=== PATIENT | male | born 1945 | race Caucasian/White ===

== ENCOUNTER 2025-03-01 08:11 | Day surgery (SDC) | payer MEDICARE, OTHER, SELFPAY ==
--- NOTE | 2025-03-01 | PATH_ITS ---
[facility] Accession Number: [id number] No. of containers..02 Tissue . 01 Material submitted: . PART A: colon - ASCENDING POLYP X 2 PART B: sigmoid colon - SIGMOID POLYP X 2 . 01 Diagnosis: A. ASCENDING COLON POLYPS: Sessile serrated adenoma. Tubular adenoma. . B. SIGMOID COLON POLYPS: Tubular adenomas. MRV 03/05/2025 1237 Local . 01 Electronically signed: . Molly Akhtar MD, Pathologist NPI- [id number] . 01 Gross description: . Part A: ASCENDING POLYP X 2: Received in formalin are multiple fragment(s) of green, soft tissue measuring 0.1 x 0.1 x 0.1 cm to 0.6 x 0.4 x 0.3 cm submitted entirely in 1 cassette(s) Part B: SIGMOID POLYP X 2: Received in formalin are multiple fragment(s) of green, soft tissue measuring 0.3 x 0.3 x 0.2 cm to 1.0 x 0.4 x 0.2 cm submitted entirely in 1 cassette(s) /MANUELA 03/02/2025 0126 Local . 01 Pathologist provided ICD-10: D12.2, D12.5 . 01 CPT . 022071, 015852 Specimen Comment: A courtesy copy of this report has been sent to [facility] Performed at: [address] [address], [place], [place] [id number] MD Luis Antonio Bergman MD Phone: [phone]
--- NOTE | 2025-03-01 08:49 | PM.HP.IH.1 ---
History of Present Illness History of Present Illness Date Patient Seen: 03/01/25 Time Patient Seen: 08:49 Chief complaint: SDC Narrative: 79-year-old white male with a history of colon polyps 3 years ago recommended for surveillance at this time. No changes in health. Meds Home Medications and Allergies Home Medications Medication Instructions Recorded Confirmed Type sodium,potassium,mag sulfates 17.5 See Rx Instructions PO .COMPLEX 02/07/25 Rx gram-3.13 gram-1.6 gram oral soln #354 mL (Suprep Bowel Prep Kit) Review of Systems Review of Systems ROS: Yes All systems reviewed with the patient and are negative except as otherwise documented Exam Narrative Exam Narrative: Gen: NAD, sitting comfortably in bed, appears well HEENT: Sclera are anicteric, head is normocephalic and atraumatic, trachea is midline. CV: RRR, no JVD Resp: clear to auscultation bilaterally, equal chest wall movement bilaterally Abd: soft, nontender, normoactive bowel sounds Ext: no edema, full range of motion Neuro: Cranial nerves II-XII grossly intact, no focal deficits Skin: No erythema or ecchymosis Assessment & Plan Assessment and plan (1) Personal history of colonic polyps: Status: Acute Assessment & Plan narrative: Patient presents for colonoscopy Risks, benefits, alternatives to colonoscopy explained, including but not limited to bowel perforation or other serious complication requiring surgery at less than 1 in 5000 colonoscopies, abdominal pain, cramping or bleeding and less than 1% of colonoscopies, and the chances that we find a diagnosis that would require further intervention of about 2%. Patient agrees to proceed. Time-Based Coding :: [TOTAL MINUTES] spent with patient and on the chart (including review of chart, obtaining history, exam, reviewing outside data, placing orders, documenting exam and treatment plan, and counseling patient) on [DATE]. [employer] Document charge(s): No
[2025-03-01] MEDS: LACTATED RINGERS 1,000 ML 125 ML IV (09:00)
[2025-03-01 09:05] VITALS: BP 210/100; PULSE 68; RESP 16; TEMP 36.6; O2SAT 97
--- NOTE | 2025-03-01 10:07 | PM.OP.COLON ---
Operative Date/Time/Diagnoses Date of procedure: 03/01/25 Time of procedure: 10:07 Pre-op diagnosis: Colon screening Post-op diagnosis: same (Multiple polyps, diverticulosis) Procedure & Clinicians Study performed: Colonoscopy with cold snare polypectomy Same procedure as scheduled: Yes Indications: Colon screening Surgeon: Devendra Galarza Procedure Notes SCOAP/Timeout: Performed Procedure in detail: Time-out was performed. Mac was induced. Patient was placed in left lateral decubitus position. The perineum was inspected without any gross abnormality. Lubricated pediatric colonoscope was inserted and advanced to the cecum. The terminal ileum was intubated. The colonoscope was withdrawn slowly inspecting the circumference of the colon. Patient had 2 benign-appearing polyps in the ascending colon and 2 benign-appearing polyps in the sigmoid colon. All polyps were removed with cold snare polypectomy and retrieved. Very small polyps may have been missed, prep quality was adequate. Patient had extensive sigmoid diverticulosis. Retroflexed view of the rectum showed small, non prolapsed nonbleeding internal hemorrhoids. The scope was withdrawn the patient was taken to PACU in good condition. Scope withdrawal time: 19 Sedation minutes: 23 Findings: divertiulosis, internal hemorrhoids and polyp(s) Specimen(s): other (1. Ascending colon polyps x2 2. Sigmoid polyps x2) Complications: none Impression: Multiple small benign-appearing polyps Post-procedure Recommendations: Colonoscopy in 3 years Plan for aftercare: home Follow up: as needed Disposition: PACU
[2025-03-01 10:10] VITALS: BP 114/69; PULSE 59; RESP 16; TEMP 36.4; O2SAT 97
[2025-03-01 10:15] VITALS: BP 120/75; PULSE 53; RESP 14; O2SAT 98
[2025-03-01 10:20] VITALS: BP 129/78; PULSE 57; RESP 13; TEMP 36.4; O2SAT 98
== END 2025-03-01 10:45 | disposition home or self-care (01) ==
PROVIDERS: PCP Internal Medicine; Referring Provider Surgery; Visit Provider Surgery
PROC: 0DJD8ZZ Inspection of Lower Intestinal Tract, Via Natural or Artificial Opening Endoscopic (ICD-10-PCS; CPT 45378; principal; 2025-03-01 09:30)
DX: Z12.11 Encounter for screening for malignant neoplasm of colon (principal); Z86.0100 Personal history of colon polyps, unspecified; D12.2 Benign neoplasm of ascending colon; D12.5 Benign neoplasm of sigmoid colon
CPT/HCPCS: 45385; J2704